=== PATIENT | male | born 2005 | race Caucasian/White ===

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

== ENCOUNTER 2023-05-14 01:12 | Emergency (ER) | payer OTHER ==
[2023-05-14 01:24] VITALS: BP 126/80; PULSE 80; RESP 14; BMI 19.2
[2023-05-14 03:14] LABS: THROAT:GRP A STREP NOT DETECTED (NOTDETECTED)
== END 2023-05-14 01:58 | disposition home or self-care (01) ==
LOC: FER 01:12
DX: R07.0 Pain in throat (principal); Z20.822 Contact with and (suspected) exposure to COVID-19
CPT/HCPCS: 0241U-QW; 87651; 99283-25